=== PATIENT | male | born 1940 | race Caucasian/White ===

== ENCOUNTER 2023-10-11 18:19 | Emergency (ER) | payer OTHER, BC ==
[~2023-10-11] VITALS: Ht 180.3 cm; Wt 99.8 kg
[2023-10-11 18:29] VITALS: BP 158/87
== END 2023-10-11 20:54 | disposition home or self-care (01) ==
LOC: ER 18:19
DX: S09.90XA Unspecified injury of head, initial encounter (principal); W01.198A Fall on same level from slipping, tripping and stumbling with subsequent striking against other object, initial encounter; Z88.2 Allergy status to sulfonamides
CPT/HCPCS: 70450; 99283-25